=== PATIENT | female | born 1990 | race Two or more races ===

== ENCOUNTER 2023-05-07 20:44 | Inpatient (IN) | payer OTHER ==
[~2023-05-07] VITALS: Ht 165.1 cm; Wt 59.1 kg
[2023-05-07] MEDS ORDERED: SODIUM CHLORIDE 0.9% 1,000 ML IV ONE (21:30)
[2023-05-07] MEDS ORDERED: MAGNESIUM SULFATE 1GM/100ML 100 ML IV ONE (21:30)
[2023-05-07 22:03] LABS: Basophils # (auto) 0.1 10 ^3/uL (0-0.2); Basophils % (auto) 1.1 % (0.0-2.0); Eosinophils # (auto) 0 10 ^3/uL (0-0.8); Eosinophils % (auto) 0.1 % (0.0-7.0); Hematocrit 39.3 % (36.0-46.0); Hemoglobin 13.5 g/dL (12.2-16.2); Lymphocytes # (auto) 0.3 10 ^3/uL (0.4-5.4); Lymphocytes % (auto) 6.1 % (10.0-50.0); Mean Corpuscular Hgb Conc. 34.3 g/dL (32.0-36.0); Mean Corpuscular Volume 104.9 fL (80.0-100.0); Monocytes # (auto) 0.3 10 ^3/uL (0-1.3); Monocytes % (auto) 5.7 % (0.0-12.0); Neutrophils # (auto) 4.6 10 ^3/uL (1.6-8.6); Red Blood Cells 3.75 10^6/uL (4.0-5.20); Red Cell Distribution Width 14.6 % (11.8-14.3); White Blood Cell 5.3 10^3/uL (4.4-10.8)
[2023-05-07 22:18] LABS: Acetaminophen < 2.0 UG/ML (10.0-20.0); Alanine Aminotransferase 68 U/L (7-40); Albumin 4.6 g/dL (3.2-4.8); Alkaline Phosphatase 37 U/L (46-116); Anion Gap 19 (5-15); Aspartate Aminotransferase 149 U/L (13-40); BUN/Creatinine Ratio 11.9 (10.0-20.0); Blood Alcohol 3.1 mg/dL (<10); Blood Urea Nitrogen 10 mg/dL (9-23); Calcium 9.4 mg/dL (8.5-10.1); Carbon Dioxide 19 mmol/L (20-30); Chloride 99 mmol/L (98-107); Glucose 124 mg/dL (74-106); Platelet Estimate Decreased; Potassium 3.6 mmol/L (3.5-5.1); Sodium 137 mmol/L (136-145)
[2023-05-07 22:19] LABS: Anisocytosis Slight; Bilirubin, Total 1.5 mg/dL (0.2-1.0); Macrocytosis Slight; Total Protein 7.9 g/dL (5.7-8.2)
[2023-05-07 22:25] LABS: Salicylate < 3.0 mg/dL (2.8-20.0)
[2023-05-07] MEDS ORDERED: MORPHINE SULFATE 4 MG/ML SYR/VIAL IV ONE (22:45)
[2023-05-07] MEDS ORDERED: METOCLOPRAMIDE HCL 5MG/ml INJ 2ml VIAL IV ONE (22:45)
[2023-05-07] MEDS ORDERED: diphenhdrAMINE HCL 50 MG/1 ML VL IV ONE (22:45)
[2023-05-08 01:48] VITALS: PULSE 93; RESP 12; O2SAT 92
[2023-05-08] MEDS ORDERED: LORazepam 2MG/ML-1ML VIAL IV ONE (02:45)
[2023-05-08 03:37] LABS: Amphetamine Screen, Urine Neg (NEGATIVE); Barbiturate Scree,Urine Neg (NEGATIVE); Benzodiazephine Screen, Urine Neg (NEGATIVE); Cannabinoid Screen, Urine Pos (NEGATIVE); Cocaine Screen, Urine Neg (NEGATIVE); Opiate Scree,Urine Pos (NEGATIVE); Phencyclidine Screen, Urine Neg (NEGATIVE)
[2023-05-08] MEDS ORDERED: SODIUM CHLORIDE 0.9% 1,000 ML IV ONE (05:00)
[2023-05-08 05:12] VITALS: PULSE 87; RESP 17; O2SAT 96
[2023-05-08] MEDS ORDERED: TEMAZEPAM 15 MG CAP PO PRN (05:45)
[2023-05-08] MEDS ORDERED: chlordiazePOXIDE HCL 25 MG CAP PO PRN (05:45)
[2023-05-08] MEDS ORDERED: LORazepam 2MG/ML-1ML VIAL IV PRN ×2 (05:45→19:00)
[2023-05-08 07:35] VITALS: PULSE 77; RESP 14; O2SAT 97
[2023-05-08] MEDS: LORazepam 2MG/ML-1ML VIAL IV PRN ×2 (12:29→23:27)
[2023-05-08] MEDS: FOLIC ACID 1 MG, MULTIPLE VITAMIN 10 ML, MAGNESIUM SULF SDV 50% 8 MEQ, THIAMINE INJ 100... INJ SCH ×5 (12:31)
[2023-05-08 13:39] LABS: Urine Bacteria FEW /hpf (None Seen); Urine Blood 2+ /uL (Negative); Urine Clarity HAZY (Clear); Urine Color Yellow (Yellow); Urine Mucus FEW (None Seen); Urine Protein, UAD 1+ (Negative); Urine Specific Gravity 1.025 (1.001-1.035); Urine WBC 11 /hpf (0 - 5)
[2023-05-08 19:50] VITALS: PULSE 97; RESP 19; O2SAT 98
[2023-05-08 22:07] VITALS: BP 149/94; PULSE 79; RESP 16; TEMP 98.7; O2SAT 100
[2023-05-08 22:34] VITALS: PULSE 79; RESP 20; O2SAT 100
[2023-05-09 08:00] VITALS: BP_SYST 124; BP_SYST 136; BP_DIAS 70; BP_DIAS 95; PULSE 107; PULSE 58; RESP 20; RESP 22; TEMP 98; O2SAT 95
[2023-05-09 11:20] LABS: Alanine Aminotransferase 55 U/L (7-40); Albumin 4.3 g/dL (3.2-4.8); Alkaline Phosphatase 33 U/L (46-116); Anion Gap 14 (5-15); Aspartate Aminotransferase 122 U/L (13-40); Bilirubin, Total 1.3 mg/dL (0.2-1.0); Calcium 8.6 mg/dL (8.5-10.1); Carbon Dioxide 22 mmol/L (20-30); Chloride 97 mmol/L (98-107); Glucose 62 mg/dL (74-106); Potassium 3.2 mmol/L (3.5-5.1); Sodium 133 mmol/L (136-145); Total Protein 7.4 g/dL (5.7-8.2)
[2023-05-09 11:39] LABS: BUN/Creatinine Ratio 7.6 (10.0-20.0); Blood Urea Nitrogen < 5 mg/dL (9-23)
[2023-05-09] MEDS ORDERED: cefTRIAXone 1GM/50ML D5W 50 ML IV ONE (11:45)
[2023-05-09 12:00] VITALS: BP 149/99; PULSE 110; RESP 20; TEMP 98.2; O2SAT 100
[2023-05-09] MEDS ORDERED: POTASSIUM CHL 20 Meq TABLET PO ONE (12:00)
[2023-05-09 12:02] LABS: Eosinophils # (auto) 0.1 10 ^3/uL (0-0.8); Lymphocytes # (auto) 1.1 10 ^3/uL (0.4-5.4); Monocytes # (auto) 0.4 10 ^3/uL (0-1.3); Neutrophils # (auto) 2.2 10 ^3/uL (1.6-8.6); Neutrophils % (auto) 57.4 % (37.0-80.0); White Blood Cell 3.9 10^3/uL (4.4-10.8)
[2023-05-09 12:05] LABS: Basophils # (auto) 0 10 ^3/uL (0-0.2); Basophils % (auto) 1.2 % (0.0-2.0); Eosinophils % (auto) 2.6 % (0.0-7.0); Hematocrit 39.2 % (36.0-46.0); Hemoglobin 13.4 g/dL (12.2-16.2); Lymphocytes % (auto) 27.9 % (10.0-50.0); Mean Corpuscular Hemoglobin 36.5 pg (28.0-32.0); Mean Corpuscular Hgb Conc. 34.3 g/dL (32.0-36.0); Mean Corpuscular Volume 106.4 fL (80.0-100.0); Monocytes % (auto) 10.9 % (0.0-12.0); Nucleated Red Blood Cells % 0.3 %; Red Blood Cells 3.69 10^6/uL (4.0-5.20); Red Cell Distribution Width 13.9 % (11.8-14.3)
[2023-05-09] MEDS: FOLIC ACID 1 MG, MULTIPLE VITAMIN 10 ML, MAGNESIUM SULF SDV 50% 8 MEQ, THIAMINE INJ 100... INJ SCH ×5 (15:00)
[2023-05-10] MEDS ORDERED: cefTRIAXone 1GM/50ML D5W 50 ML IV SCH (09:00)
== END 2023-05-09 16:00 | disposition left against medical advice (07) | DRG 101 ==
LOC: EDBD 20:44 → ER 20:44 → OVERFLOW 05-08 05:42 → EAST 05-08 21:15
PROVIDERS: ADMIT Internal Medicine; ATTEND Internal Medicine
DX: G40.409 Other generalized epilepsy and epileptic syndromes, not intractable, without status epilepticus (principal); E87.20 Acidosis, unspecified; F10.239 Alcohol dependence with withdrawal, unspecified; D69.6 Thrombocytopenia, unspecified; D75.89 Other specified diseases of blood and blood-forming organs; R74.01 Elevation of levels of liver transaminase levels; Z88.0 Allergy status to penicillin
CPT/HCPCS: 36415; 70450; 70551; 71045; 80053; 80307; 80320; 80329; 81001; 84484; 85025; 93005; 95819; 96365; 96367; 96375; 99291; G0378; J0696